=== PATIENT | male | born 1935 | race Caucasian/White ===

== ENCOUNTER 2017-01-05 16:28 | Inpatient (IN) | payer OTHER ==
[~2017-01-05] VITALS: Ht 172.7 cm; Wt 68.0 kg
[2017-01-05 16:30] VITALS: BP 224/110
--- NOTE | 2017-01-05 16:30 | NUR ---
PT BIBA TO BED 2 AT THIS TIME.
--- NOTE | 2017-01-05 16:35 | NUR ---
81M BIB[facility] FROM [facility] C/O GENERALIZED WEAKNESS X 24 HOURS; PT A&OX1 TO SELF, BUT NOT PLACE, TIME, OR SITUATION; HX: CVA, AFIB, LEFT HEMIPARESIS, J-TUBE, DMII, HYPERLIPIDEMIA, BIPOLAR, DEMENTIA; PT DENIES PAIN, N/V/D AT THIS TIME. PT NOTED W/ J-TUBE TO LEFT UPPER QUADRANT FROM RECENT HERNIA REPAIR; NO DRAINAGE NOTED AT THIS TIME TO SITE; PT UNABLE TO AMBULATE AT THIS TIME, W/ SEVERE WEAKNESS TO BL UPPER/LOWER EXTREMITIES; PT ABLE TO FOLLOW COMMANDS; PT PLACED ON MONITOR, RESTING IN BED W/ HOB ELEVATED AND IN LOWEST POSITION; POSITIONED FOR COMFORT; ER MD MADE AWARE OF STATUS. WILL CONTINUE TO MONITOR.
--- NOTE | 2017-01-05 16:38 | NUR ---
XRAY AT BEDSIDE.
[2017-01-05] MEDS ORDERED: COLACE100 M1 PO (16:43)
[2017-01-05] MEDS ORDERED: DIVALPROEX SOD125 M1 PO (16:43)
[2017-01-05] MEDS ORDERED: AMARYL2 MG PO (16:43)
[2017-01-05] MEDS ORDERED: XARELTO15 MG PO (16:43)
[2017-01-05] MEDS ORDERED: DITROPAN5 MG PO (16:43)
[2017-01-05] MEDS ORDERED: NORVASC10 MG PO (16:43)
[2017-01-05] MEDS ORDERED: CALCIUM 500 +1 EAC1 PO (16:43)
[2017-01-05] MEDS ORDERED: LIPITOR10 MG PO (16:43)
[2017-01-05] MEDS ORDERED: CELEXA20 MG PO (16:43)
[2017-01-05] MEDS ORDERED: ALTACE5 MG PO (16:43)
[2017-01-05] MEDS ORDERED: DUTASTERIDE0.5 MG PO (16:43)
[2017-01-05] MEDS ORDERED: GOOD SENSE PAI500 M1 PO (16:43)
--- NOTE | 2017-01-05 17:56 | NUR ---
PT RETURNED FROM CT VIA [facility], ACCOMPANIED BY TELECOM ANALYST.
[2017-01-05] MEDS ORDERED: AZITHROMYCIN 500 MG in DEXTROSE 5% 250 ML IV ONE (18:15)
[2017-01-05] MEDS ORDERED: AZITHROMYCIN 500 MG INJ VIAL IV ONE (18:23)
[2017-01-05] MEDS ORDERED: cefTRIAXone 1,000 MG VIAL ONE (18:23)
--- NOTE | 2017-01-05 18:45 | NUR ---
REPORT GIVEN TO ROYER RN; JM ASKED FOR 15 MINUTES TO PREPARE PT BED; STATED WILL GIVE 15 MINUTES BEFORE TAKING PT TO FLOOR.
[2017-01-05] MEDS ORDERED: NACL 0.9% 1,000 ML IV ONE (18:50)
--- NOTE | 2017-01-05 18:55 | NUR ---
PT BP 95/53; MST NURSE JM NOTIFIED IN REPORT; ER MD DR. CALHOUN NOTIFIED; IV BOLUS STARTED ON PT PER MD DR. CALHOUN ORDERS; WILL CONTINUE TO MONITOR.
--- NOTE | 2017-01-05 19:05 | NUR ---
Patient will be admitted to care of DR. BLANCO. Admited to TELEMETRY. Will go to room 110B. Belongings list completed. Report to ROSIE LINTON. PT TRANSPORTED VIA GURNEY ACCOMPANIED BY ROSIE BASSETT & CARROLL SCHMIDT AT THIS TIME.
--- NOTE | 2017-01-05 19:30 | NUR ---
ADMITTED 81YEAR OLD MALE FROM ER VIA GURNEY ACCOMPANIED BY NURSE, APHASIC, NONVERBAL, SLEEPING, AROUSABLE EASILY. ORIENTED TO ROOM AND UNIT ROUTINES. PLAN OF CARE DISCUSSED WITH PATIENT, VERBALIZED UNDERSTANDING WELL. CALL LIGHT WITHIN REACH.
[2017-01-05] MEDS ORDERED: DEXTROSE 50% 50 ML SYR IVP PRN (21:20)
[2017-01-05] MEDS: DEXT 5% / NACL 0.45% 1,000 ML IV SCH (21:36)
[2017-01-05 22:14] VITALS: BP 143/70
[2017-01-05] MEDS ORDERED: PNEUMOCOCCAL VACCINE 23 MCG/0.5 ML VIAL IMVAC PRN (23:10)
[2017-01-05] MEDS ORDERED: INFLUENZA VIRUS VACCINE QUAD 0.5 ML SYR IMVAC PRN (23:10)
--- NOTE | 2017-01-05 23:26 | NUR ---
EKG DONE ORDERED.
[2017-01-05 23:45] VITALS: BP 105/42
--- NOTE | 2017-01-05 23:47 | NUR ---
REPOSITIONED. NO COMPLAINS. CALL LIGHT WITHIN REACH.
[2017-01-06] VITALS (7 sets, daily range): BP systolic 132–178; BP diastolic 76–95
--- NOTE | 2017-01-06 04:09 | NUR ---
REPOSITIONED. VITAL SIGNS STABLE. NO COMPLAINS. CALL LIGHT WITHIN REACH.
[2017-01-06] MEDS: BLOOD GLUCOSE MONITORING 1 DEV DEV FS SCH ×4 (05:57→20:54)
[2017-01-06] MEDS: INSULIN LISPRO SLIDING SCALE 100 UNITS/ML VIAL SUBQ PRN ×4 (05:58→20:55)
--- NOTE | 2017-01-06 07:30 | NUR ---
RECEIVED ON BED AAOX2, CONFUSED. NO SOB NOTED. NO C/O PAIN AT THIS TIME. IV TO LT AC PATENT AND INTACT. LT SIDED WEAKNESS NOTED. CHEST CLEAR. ABDOMEN SOFT, BOWEL SOUNDS PRESENT. WITH G-TUBE, CLAMPED. SCD'S IN PLACE. WILL REPOSITION PT EVERY 2 HRS. BED ON LOW POSITION. BED ALARM ON. INSTRUCTED PT TO CALL FOR ASSISTANCE, CALL LIGHT WITHIN REACH, PT VERBALIZED PARTIAL UNDERSTANDING.
--- NOTE | 2017-01-06 07:32 | NUR ---
ENDORSED CARE AT BEDSIDE WITH PAULIE RN, PATIENT STABLE CONDITION.
[2017-01-06] MEDS ORDERED: ACETAMINOPHEN EXTRA STRENGTH 500 MG TAB PO PRN (08:05)
--- NOTE | 2017-01-06 08:17 | NUR ---
PATIENT HAS BEEN SCREENED AND CATEGORIZED HIGH NUTRITION RISK. PATIENT WILL BE SEEN WITHIN 1-2 DAYS OF ADMISSION. 01/06/17-01/07/[address] Addendum: 01/06/17 at [address] PATIENT HAS BEEN RESCREENED AND RECATEGORIZED MODERATE NUTRITION RISK. PATIENT WILL BE SEEN WITHIN 3-5 DAYS OF ADMISSION. 01/08/17-01/10/[address]
--- NOTE | 2017-01-06 08:30 | NUR ---
PT SEEN BY DR. Monika BLANCO, NEW ORDERS GIVEN.
[2017-01-06] MEDS ORDERED: RIVAROXABAN 15 MG TAB PO SCH (09:00)
[2017-01-06] MEDS ORDERED: ATORVASTATIN 20 MG TAB PO SCH (09:00)
[2017-01-06] MEDS ORDERED: DUTASTERIDE 0.5 MG PO SCH (09:00)
[2017-01-06] MEDS ORDERED: amLODIPine 5 MG TAB PO SCH (09:00)
[2017-01-06] MEDS: amLODIPine 5 MG TAB JT SCH (10:28)
[2017-01-06] MEDS: RAMIPRIL 5 MG CAP PO SCH (10:29)
[2017-01-06] MEDS: DIVALPROEX SPRINKLES 125 MG CAPDR PO SCH ×3 (10:29→17:00)
[2017-01-06] MEDS: GLIMEPIRIDE 2 MG TAB PO SCH (10:29)
[2017-01-06] MEDS: RIVAROXABAN 15 MG TAB JT SCH (10:40)
[2017-01-06] MEDS: DOCUSATE SODIUM 100 MG GELCAP PO SCH ×2 (10:41→20:53)
[2017-01-06] MEDS: CITALOPRAM 20 MG TAB PO SCH (10:41)
[2017-01-06] MEDS: DEXT 5% / NACL 0.45% 1,000 ML IV SCH ×2 (10:45→22:11)
--- NOTE | 2017-01-06 13:00 | NUR ---
PT ABLE TO SWALLOW ORAL MEDS, CRUSHED WITH APPLE SAUCE, ON ASPIRATION PRECAUTIONS. NURSE HAVE TO TELL PT THAT HE NEEDS TO SWALLOW. PT SEEMS TO NOT HAVE THE INITIATIVE TO SWALLOW THE FOOD IN HIS MOUTH NOT UNTIL TOLD TO DO SO.
--- NOTE | 2017-01-06 15:21 | NUR ---
FNS REFERRAL RECEIVED ON 01/05/17 FOR TUBE FEEDING. RN REPORTS PATIENT ON PUREE DIET, CAN TOLERATE ORAL DIET. PT HAS BEEN RECATEGORIZED MODERATE NUTRITION RISK AND WILL BE SEEN AND ASSESSED WITHIN 3-5 DAYS. SHOULD PT STATUS CHANGE AND PT NEED NUTRITION SUPPORT PLEASE CONSULT ROBERT SLADE THANK YOU CHITRA GE RD Addendum: 01/08/17 at [address] PATIENT HAS BEEN RECATEGORIZED HIGH NUTRITION RISK D/T SWALLOW EVALUATION RECOMMENDING PATIENT BE NPO AND TUBE FEEDINGS HAVE BEEN STARTED. ROBERT WILL ASSESS PATIENT TODAY (01/08/17) CHITRA GE [address]
--- NOTE | 2017-01-06 16:31 | NUR ---
SPOKE WITH DR. BLANCO OVER THE PHONE AND NOTIFIED MD REGARDING PT'S SWALLOWING ISSUE. NEW ORDERS GIVEN.
--- NOTE | 2017-01-06 18:10 | NUR ---
PT ABLE TO CONSUMED 25% OF PUREE DINNER. ON ASPIRATION PRECAUTIONS.
--- NOTE | 2017-01-06 19:00 | NUR ---
PT AWAKE, NO SOB NOTED. NO COMPLAINTS MADE. WILL ENDORSE TO NEXT SHIFT NURSE FOR CONTINUE OF CARE.
--- NOTE | 2017-01-06 19:30 | NUR ---
RECEIVED REPORT FROM ALEX APODACA RN AT BEDSIDE. PT IS ALERT AWAKE ORIENTED X2 WITH PERIOD OF CONFUSION. INITIAL ASSESSMENT DONE. NO S/S OF RESPIRATORY DISTRESS OR SOB NOTED. NO C/O PAIN OR ANY DISCOMFORT AT THIS TIME. PT HAS G-TUBE BUT FEEDING IS ON HOLD BECAUSE PT ABLE TO SWALLOW WITH PUREE DIET. PLACEMENT AND PATENCY ARE CONFIRMED. PLAN OF CARE REVIEWED TO PT AND VERBALIZED UNDERSTANDING AND NEED TO BE REINFORCED. CALL LIGHT WITHIN REACH. WILL CONTINUE TO MONITOR.
[2017-01-06] MEDS: SIMVASTATIN 20 MG TAB PO SCH (20:53)
[2017-01-07] VITALS (7 sets, daily range): BP systolic 95–154; BP diastolic 60–98
--- NOTE | 2017-01-07 00:20 | NUR ---
PT IS SLEEPING RIGHT NOW BUT EASILY AROUSBLE. NO S/S OF ANY DISCOMFORT AT THIS TIME. ALL NEEDS ARE ATTENDED. CALL LIGHT WITHIN REACH. WILL CONTINUE TO MONITOR.
--- NOTE | 2017-01-07 05:15 | NUR ---
AM CARE RENDERED. BED LINEN CHANGED. REPOSITIONED PATIENT. KEPT CLEAN AND DRY. CALL LIGHT WITHIN REACH. WILL CONTINUE TO MONITOR.
[2017-01-07] MEDS: BLOOD GLUCOSE MONITORING 1 DEV DEV FS SCH ×4 (06:31→21:31)
[2017-01-07] MEDS: INSULIN LISPRO SLIDING SCALE 100 UNITS/ML VIAL SUBQ PRN ×3 (06:32→21:33)
--- NOTE | 2017-01-07 07:23 | NUR ---
PT HAS NO S/S OF ANY DISCOMFORT. PLAN OF CARE ENDORSED TO ALEX RN AT BEDSIDE FOR CONTINUITY OF CARE.
--- NOTE | 2017-01-07 07:30 | NUR ---
RECEIVED ON BED ASLEEP, AROUSABLE, ORIENTED X1-2, CONFUSED. NO SOB NOTED. NO C/O PAIN AT THIS TIME. IV TO LT AC PATENT AND INTACT. LT SIDED WEAKNESS NOTED. CHEST CLEAR. ABDOMEN SOFT, BOWEL SOUNDS PRESENT. WITH G-TUBE, CLAMPED. SCD'S IN PLACE. WILL REPOSITION PT EVERY 2 HRS. BED ON LOW POSITION. BED ALARM ON. INSTRUCTED PT TO CALL FOR ASSISTANCE, CALL LIGHT WITHIN REACH, PT VERBALIZED PARTIAL UNDERSTANDING.
[2017-01-07] MEDS: DOCUSATE SODIUM 100 MG GELCAP PO SCH ×2 (09:00→21:31)
[2017-01-07] MEDS: CITALOPRAM 20 MG TAB PO SCH (09:00)
[2017-01-07] MEDS: RAMIPRIL 5 MG CAP PO SCH (09:00)
[2017-01-07] MEDS: amLODIPine 5 MG TAB JT SCH (09:00)
[2017-01-07] MEDS: GLIMEPIRIDE 2 MG TAB PO SCH (09:00)
[2017-01-07] MEDS: DIVALPROEX SPRINKLES 125 MG CAPDR PO SCH ×3 (09:00→18:04)
[2017-01-07] MEDS: ASPIRIN 81 MG TAB.CHEW PO SCH (09:00)
[2017-01-07] MEDS: RIVAROXABAN 15 MG TAB JT SCH (09:00)
--- NOTE | 2017-01-07 09:41 | NUR ---
G-TUBE PATENT AND INTACT, 5 MLS RESIDUAL NOTED. PT REFUSED ALL ORAL MEDS. PT AWAITING FOR SPEECH THERAPIST FOR SWALLOW EVALUATION.
[2017-01-07] MEDS: NITROGLYCERIN 0.2 MG/HR PATCH TD SCH (10:24)
[2017-01-07] MEDS: POTASSIUM CHL 20 MEQ/D5-1/2NS 1,000 ML IV SCH ×2 (10:25→23:11)
[2017-01-07] MEDS: CHLORHEXADINE GLUC 2% CLOTH TP SCH (12:00)
--- NOTE | 2017-01-07 13:09 | NUR ---
RANGE ECOLOGIST note (bedside swallow evaluation completed) [phone]. Bedside swallow evaluation completed, please see report for details. RANGE ECOLOGIST provided pt with education regarding purpose of evaluation; however, pt with ALOC/dementia/bipolar/essentially non-verbal at baseline, so pt unlikely to benefit from education provided at this time. Recommend: 1) STRICT NPO (oral cares only) 2) consider alternative method(s) of nutrition/hydration/medication vs hospice/comfort measures, as appropriate 3) no further RANGE ECOLOGIST intervention indicated at this time. Physician may reorder if pt's status improves significantly/warrants, as appropriate. G-codes: [id number] [id number] [id number] [facility] NOMS level 1. PVE for discussion with RN (Gala) prior to/following evaluation completion.
--- NOTE | 2017-01-07 13:30 | NUR ---
PT NOTES CLEARED BY RN FOR P.T. TX. PATIENT ASLEEP IN BED. PATIENT UNAROUSABLE DESPITE NUMEROUS ATTEMPT AT CALLING PATIENT NAME FOR P.T. TX. PATIENT HEAVILY DROWSY & LETHARGIC. RN STATED THAT PATIENT WAS UNABLE TO SLEEP LAST NIGHT. RN AWARE WILL FOLLOW UP TOMORROW FOR TX. WILL NOTIFY PRIMARY THERAPIST PVE Addendum: 01/08/17 at 1056 by Mariam Dupont PT PHYSICAL THERAPY CO-SIGN The Physical Therapy Progress Notes documented by [employer] have been reviewed. Reviewed/Co-Signed by: Marima Dupont Documentation Done by:DOLORES CORADO PTA
[2017-01-07] MEDS: MUPIROCIN 2% OINT 22 GM TUBE TP SCH (13:45)
--- NOTE | 2017-01-07 17:47 | NUR ---
PT SEEN BY DR. BARKLEY WITH NEW ORDERS.
--- NOTE | 2017-01-07 18:00 | NUR ---
g-tube residual 5 mls noted. g-tube feeding of diabetic source started. will monitor pt for tolerance.
--- NOTE | 2017-01-07 19:20 | NUR ---
PT RESTING, NO SOB NOTED. NO SIGNS OF PAIN. PT TOLERATING G-TUBE FEEDING WELL. WILL ENDORSE TO NEXT SHIFT NURSE FOR CONTINUITY OF CARE.
--- NOTE | 2017-01-07 19:30 | NUR ---
RECEIVED FROM AM RN IN BED SLEEPING. ABLE TO WAKE UP WHEN TOUCHED. ALERT BUT WITH FORGETFULLNESS. HX. LEFT HEMIPARESIS. DX. OF GENERAL WEAKNESS AND INCREASED TROPONIN. CALL LIGHT WITH IN REACH. CARE PLAN FOR THE NIGHT DISCUSSED WITH HIM. NEEDS WILL BE ANTICIPATED RT WITH DEMENTIA.
[2017-01-07] MEDS: SIMVASTATIN 20 MG TAB PO SCH (21:31)
--- NOTE | 2017-01-08 01:29 | NUR ---
FLACC 0-. AFEBRILE.TELEMETRY MONITORING. NEEDS ANTICIPATED. TURNED Q 2H . PILLOW SUPPORT TO PRESSURE AREAS RT WITH GENERALIZED WEAKNESS.SLEEPING AT THIS TIME. NO SOB. CALL LIGHT WITH IN REACH. NO RESTLESSNESS NOTED.
--- NOTE | 2017-01-08 03:00 | NUR ---
PT. SLEEPING. NEEDS ANTICIPATED AND WILL BE MET. TOTAL CARE. TELEMETRY MONITORING. PT. HOB UP 30 DEGREES FOR ASPIRATION PRECAUTIONS. NO N/V. RESIDUAL CHECKED 10 ML. IVF SITE CHECKED WITH GOOD BLOOD RETURN. TURNED TO SIDES Q 2H WITH PILLOW SUPPORT TO PRESSURE AREAS.
[2017-01-08 03:55] VITALS: BP 155/90
--- NOTE | 2017-01-08 05:00 | NUR ---
PT. AWAKE AT THIS TIME. CNAS TURNED PT. Q 2H . PILLOW SUPPORT TO PRESSURE AREAS. TOTAL CARE. NO SOB. ISOLATION PRECAUTION OBSERVED RT WITH MRSA NARES.IVF SITE CHECKED FOR INFILTRATION. GOOD BLOOD RETURN. ABLE TO NOD HEAD FOR YES. AWAKE AND ALERT. CALL LIGHT WITH IN REACH.
[2017-01-08] MEDS: BLOOD GLUCOSE MONITORING 1 DEV DEV FS SCH ×4 (06:38→21:21)
[2017-01-08] MEDS: INSULIN LISPRO SLIDING SCALE 100 UNITS/ML VIAL SUBQ PRN ×4 (06:39→21:24)
--- NOTE | 2017-01-08 07:10 | NUR ---
RECEIVED PATIENT REPORT AT BEDSIDE. PATIENT ASLEEP BUT AROUSABLE. NO S/S OF DISTRESS NOTED. PATIENT ON G-TUBE FEEDING. IV TO THE LEFT AC INTACT WITH IVF INFUSING WELL. SCDS IN PLACE. PATIENT ON TELE MONITORING. BED LOWERED WITH CALL LIGHT WITHIN REACH. WILL CONTINUE TO MONITOR
[2017-01-08 08:00] VITALS: BP 151/99
[2017-01-08] MEDS: DOCUSATE SODIUM 100 MG GELCAP PO SCH ×2 (09:00→21:00)
--- NOTE | 2017-01-08 09:30 | NUR ---
ADMINISTERED DUE MEDS. NO RESIDUALS NOTED. PATIENT TOLERATED WELL
[2017-01-08] MEDS: NITROGLYCERIN 0.2 MG/HR PATCH TD SCH (09:50)
[2017-01-08] MEDS: GLIMEPIRIDE 2 MG TAB PO SCH (09:51)
[2017-01-08] MEDS: DIVALPROEX SPRINKLES 125 MG CAPDR PO SCH ×3 (09:51→17:50)
[2017-01-08] MEDS: amLODIPine 5 MG TAB JT SCH (09:51)
[2017-01-08] MEDS: CITALOPRAM 20 MG TAB PO SCH (09:51)
[2017-01-08] MEDS: ASPIRIN 81 MG TAB.CHEW PO SCH (09:51)
[2017-01-08] MEDS: RAMIPRIL 5 MG CAP PO SCH (09:51)
[2017-01-08] MEDS: RIVAROXABAN 15 MG TAB JT SCH (09:56)
[2017-01-08 12:00] VITALS: BP 140/80
[2017-01-08] MEDS: MUPIROCIN 2% OINT 22 GM TUBE TP SCH (12:25)
[2017-01-08] MEDS: CHLORHEXADINE GLUC 2% CLOTH TP SCH (12:27)
--- NOTE | 2017-01-08 14:00 | NUR ---
PATIENT TURNED AND REPOSITIONED. NO S/S OF DISTRESS NOTED
--- NOTE | 2017-01-08 14:20 | NUR ---
01/08/17 RD INITIAL ASSESSMENT COMPLETED PLEASE REFER TO NUTRITION ASSESSMENT UNDER CARE ACTIVITY FOR ESTIMATED NUTRITIONAL NEEDS. RD RECOMMENDATIONS: 1. CONTINUE NUTRITION SUPPORT DIABETISOURCE AC AT 50 ML/HR WITH 150 ML FREE WATER FLUSH Q12H VIA GTUBE TOLERATED PER MD 2. IF PT CONTINUES TO TOLERATE CURRENT NUTRITION SUPPORT CONSIDER ADVANCE TUBE FEEDING TO 60 ML/HR --WILLPROVIDE 100% OF PT ESTIMATED KCAL AND PROTEIN NEEDS 3. RD WILL F/U 2-3 DAYS; HIGH RISK. AARON ALATORRE RD
[2017-01-08 16:00] VITALS: BP 116/63
--- NOTE | 2017-01-08 17:34 | NUR ---
NEW FEEDING BAG STARTED. FEEDING TUBES REPLACED. PATIENT ASLEEP. NO S/S OF DISTRESS NOTED
[2017-01-08] MEDS: POTASSIUM CHL 20 MEQ/D5-1/2NS 1,000 ML IV SCH (17:50)
--- NOTE | 2017-01-08 19:13 | NUR ---
RECEIVED PT FROM VENTURA Lui RN FOR PT CONTINUITY OF CARE, PT NOTED STABLE. NO ACUTE DISTRESS. WILL CONTINUE TO MONITOR. CALL LIGHT WITHIN REACH.
--- NOTE | 2017-01-08 19:17 | NUR ---
ENDORSED CONTINUITY OF CARE TO THE NIGHT NURSE. PATIENT IN STABLE CONDITION
--- NOTE | 2017-01-08 19:38 | NUR ---
SHIFT ASSESSMENT DONE AT THIS TIME. PT NOTED A/O X1, HAS HX DEMENTIA. IS ABLE TO FOLLOW COMMANDS. NO ACUTE DISTRESS NOTED. VITAL SIGNS ARE STABLE, NOTED ON ROOM AIR WITH OXYGEN SATURATION AT 95%. PT DENIES ANY PAIN AND NO N/V/D. LUNG SOUNDS ARE CLEAR, BOWEL SOUNDS ACTIVE. IV ACCESS TO LEFT AC #20G, PATENT AND INTACT. SKIN INTACT, ONLY BLANCHABLE REDNESS TO SACRAL AREA. SCD'S IN PLACE. G-TUBE IS PATENT AND INTACT, POSITIVE SOUND FOR CORRECT PLACEMENT, NO RESIDUALS NOTED (0ML). PT HAS WEAKNESS TO BOTH UPPER AND LOWER EXTREMITIES. SAFETY PRECAUTIONS IMPLEMENTED, CALL LIGHT WITHIN EASY REACH. BED ALARM ON, PT CLOSE TO NURSE STATION. DISCUSSED PLAN OF CARE. ON CONTACT PRECAUTIONS. WILL CONTINUE TO MONITOR.
[2017-01-08 20:00] VITALS: BP 124/70
[2017-01-08] MEDS: SIMVASTATIN 20 MG TAB PO SCH (21:21)
--- NOTE | 2017-01-08 21:24 | NUR ---
PROVIDED PT WITH INSULIN COVERAGE FOR BLOOD GLUCOSE OF 252. NO DISTRESS NOTED. CALL LIGHT WITHIN REACH.
--- NOTE | 2017-01-08 22:29 | NUR ---
RECEIVED PT FROM VENTURA Lui RN FOR PT CONTINUITY OF CARE, PT NOTED STABLE. NO ACUTE DISTRESS. WILL CONTINUE TO MONITOR. CALL LIGHT WITHIN REACH. Addendum: 01/08/17 at 2230 by Irma Turpin RN WRONG TIME.
--- NOTE | 2017-01-08 23:36 | NUR ---
PT VITAL SIGNS REMAIN STABLE, NO S/S OF ACUTE DISTRESS NOTED. PROVIDED VIDA CARE AND TURNING. CALL LIGHT WITHIN REACH.
[2017-01-09] VITALS: BP 144/80
--- NOTE | 2017-01-09 02:01 | NUR ---
PT NOTED STABLE, PROVIDED TURNING AT THIS TIME. NO S/S OF DISTRESS. WILL CONTINUE TO MONITOR.
[2017-01-09] MEDS: POTASSIUM CHL 20 MEQ/D5-1/2NS 1,000 ML IV SCH ×2 (03:39→08:53)
--- NOTE | 2017-01-09 03:57 | NUR ---
PT VITALS SIGNS REMAIN STABLE, NO S/S OF DISTRESS. PROVIDED TURNING. NO RESIDUALS NOTED.
[2017-01-09 04:00] VITALS: BP 114/72
[2017-01-09] MEDS: BLOOD GLUCOSE MONITORING 1 DEV DEV FS SCH ×2 (06:12→12:25)
[2017-01-09] MEDS: INSULIN LISPRO SLIDING SCALE 100 UNITS/ML VIAL SUBQ PRN (06:16)
--- NOTE | 2017-01-09 06:59 | NUR ---
RECEIVED CRITICAL LAB FOR PT TROPONIN OF 0.083H, TRENDING DOWN FROM LAST RESULT. ALREADY AWARE.
--- NOTE | 2017-01-09 07:08 | NUR ---
RECEIVED PATIENT REPORT AT BEDSIDE. PATIENT ASLEEP. NO S/S OF DISTRESS NOTED. PATIENT ON ROOM AIR. IV TO THE LEFT FA INTACT WITH IVF INFUSING WELL. G-TUBE IN PLACE WITH FEEDING RUNNING WELL. PATIENT ON TELE MONITORING. BED LOWERED WITH CALL WITHIN REACH. WILL CONTINUE TO MONITOR
--- NOTE | 2017-01-09 07:08 | NUR ---
ENDORSED PT TO VENTURA Lui RN AT BEDSIDE FOR PT CONTINUITY OF CARE. PT NOTED STABLE.
[2017-01-09 08:00] VITALS: BP 108/83
[2017-01-09] MEDS: RIVAROXABAN 15 MG TAB JT SCH (08:49)
[2017-01-09] MEDS: DIVALPROEX SPRINKLES 125 MG CAPDR PO SCH ×2 (08:50→12:26)
[2017-01-09] MEDS: amLODIPine 5 MG TAB JT SCH (08:50)
[2017-01-09] MEDS: GLIMEPIRIDE 2 MG TAB PO SCH (08:50)
[2017-01-09] MEDS: RAMIPRIL 5 MG CAP PO SCH (08:50)
[2017-01-09] MEDS: CITALOPRAM 20 MG TAB PO SCH (08:50)
[2017-01-09] MEDS: ASPIRIN 81 MG TAB.CHEW PO SCH (08:50)
[2017-01-09] MEDS: NITROGLYCERIN 0.2 MG/HR PATCH TD SCH (08:51)
[2017-01-09] MEDS: DOCUSATE SODIUM 100 MG GELCAP PO SCH (08:51)
[2017-01-09] MEDS ORDERED: DOCUSATE 100 MG/10 ML UDC GT SCH (09:00)
--- NOTE | 2017-01-09 09:30 | NUR ---
ADMINISTERED DUE MEDS VIA G-TUBE. NO RESIDUALS NOTED. PT TOLERATED WELL
[2017-01-09] MEDS ORDERED: HYDROmorphone PFS 2 MG/ML SYR ONE (10:38)
--- NOTE | 2017-01-09 10:45 | NUR ---
PATIENT SEEN BY PHYSICAL THERAPIST. PATIENT LETHARGIC BUT WAS ABLE TO SIT AT THE SIDE OF THE BED
--- NOTE | 2017-01-09 11:00 | NUR ---
MADE DR BLANCO AWARE OF PATIENT BEING MORE LETHARGIC COMPARED TO YESTERDAY
--- NOTE | 2017-01-09 11:58 | NUR ---
SS NOTE: I SPOKE WITH PT'S DTR-IN-LAW, MARIAH REGARDING PAYMENT FOR [facility]. SHE STATED THAT SHE HAS DEALT WITH [facility] IN THE PAST AND THEY CAN CALL HER TO MAKE PAYMENT ARRANGEMENTS. CLIFF MCDONOUGH.
[2017-01-09 12:00] VITALS: BP 94/50
--- NOTE | 2017-01-09 12:11 | NUR ---
SS NOTE: PER LAMONT FROM [facility] ([phone]), THEY WILL SEND A NURSE TO SEE PT TODAY WHEN HE ARRIVES BACK TO HIS [facility].
--- NOTE | 2017-01-09 12:21 | NUR ---
CALLED MARIAH, PATIENT'S CUSTOMER CARE SPECIALIST, AND MADE HER AWARE THAT PATIENT WILL BE DISCHARGED BACK TO [facility] TODAY
[2017-01-09] MEDS: MUPIROCIN 2% OINT 22 GM TUBE TP SCH (12:26)
[2017-01-09] MEDS: CHLORHEXADINE GLUC 2% CLOTH TP SCH (12:26)
--- NOTE | 2017-01-09 12:32 | NUR ---
CALLED [facility] AND SET UP GURNEY TRANSPORT FOR 2:20P.M. MARIAH, DAUGHTER IN LAW TO PAY FOR TRANSPORT, [facility] AWARE. LISA VELEZ AWARE OF TIME OF TRANSPORT.
--- NOTE | 2017-01-09 13:38 | NUR ---
GAVE PT REPORT TO [facility] AND [facility]. PATIENT EXPECTED TO BE TRANSPORTED AT 1430
--- NOTE | 2017-01-09 15:20 | NUR ---
PATIENT PICKED UP BY [facility]. IV LINE DISCONTINUED. TELE LEADS TAKEN OFF. PATIENT LEFT WITH ALL HIS BELONGINGS AND DISCHARGE PAPERS. PATIENT LEFT IN STABLE CONDITION
== END 2017-01-09 15:20 | DRG 871 ==
LOC: MED 16:28 → MTU 18:25
PROVIDERS: ADMIT Family Medicine; ATTEND Family Medicine
DX: A41.9 Sepsis, unspecified organism (principal); I21.4 Non-ST elevation (NSTEMI) myocardial infarction; I16.1 Hypertensive emergency; I69.354 Hemiplegia and hemiparesis following cerebral infarction affecting left non-dominant side; N17.9 Acute kidney failure, unspecified; N18.3 Chronic kidney disease, stage 3 (moderate); E11.65 Type 2 diabetes mellitus with hyperglycemia; F01.50 Vascular dementia, unspecified severity, without behavioral disturbance, psychotic disturbance, mood disturbance, and anxiety; N40.0 Benign prostatic hyperplasia without lower urinary tract symptoms; F17.219 Nicotine dependence, cigarettes, with unspecified nicotine-induced disorders; I48.91 Unspecified atrial fibrillation; F31.9 Bipolar disorder, unspecified; I12.9 Hypertensive chronic kidney disease with stage 1 through stage 4 chronic kidney disease, or unspecified chronic kidney disease; Z79.01 Long term (current) use of anticoagulants; E11.22 Type 2 diabetes mellitus with diabetic chronic kidney disease; Z79.899 Other long term (current) drug therapy; E78.5 Hyperlipidemia, unspecified

== ENCOUNTER 2017-01-12 11:33 | Observation (INO) | payer OTHER ==
[~2017-01-12] VITALS: Ht 170.2 cm; Wt 74.8 kg
[~2017-01-12 11:33] MED LIST: ALTACE5 MG PO; AMARYL2 MG PO; CALCIUM 500 +1 EAC1 PO; CELEXA20 MG PO; COLACE100 M1 PO; DITROPAN5 MG PO; DIVALPROEX SOD125 M1 PO; DUTASTERIDE0.5 MG PO; GOOD SENSE PAI500 M1 PO; LIPITOR10 MG PO; NORVASC10 MG PO; XARELTO15 MG PO
--- NOTE | 2017-01-12 11:33 | NUR ---
Patient was BIBA and taken to bed 06 via gurney per EMS.
[2017-01-12 11:41] VITALS: BP 113/52
--- NOTE | 2017-01-12 11:48 | NUR ---
BIBA IN FAIR CONDITION DUE TO DISLODGED G-TUBE THIS MORNING FROM [facility]ARD AND CARE, PT AA BUT WITH FORGETFULNESS, SKIN WARM TO TOUCH,PT PALE, DRESSING NOTED ON ABDOMEN,REMOVED DRESSING AND NOTED NO GT IN PLACE, NOTED GT SITE CLOSED, ABDOMEN SOFT NON DISTENDED.
--- NOTE | 2017-01-12 11:51 | NUR ---
Dr. Zaman evaluating patient at bedside.
--- NOTE | 2017-01-12 11:53 | NUR ---
DR. JACKSON AT BEDSIDE TRY TO PUT GT BUT UNABLE.
[2017-01-12] MEDS ORDERED: NACL 0.9% 1,000 ML IV ONE (11:55)
--- NOTE | 2017-01-12 12:02 | NUR ---
LAB AT BEDSIDE
--- NOTE | 2017-01-12 12:02 | NUR ---
TRY TO PUT URINAL FOR URINE PT BECOME AGITATED, WILL COLLECT LATER
--- NOTE | 2017-01-12 12:26 | NUR ---
REPORT GIVEN TO MATT
--- NOTE | 2017-01-12 12:30 | NUR ---
TALKED TO DR. JACKSON ABOUT URINE COLLECTION UNABLE TO COLLECT AT THIS TIME PER DR. JACKSON MAY DO IN AND OUT FOR URINE COLLECTION
--- NOTE | 2017-01-12 12:33 | NUR ---
IN AND OUT CATH DONE NO BLEEDING NOTED, ASSISTED BY EMT KIMBERLY
--- NOTE | 2017-01-12 12:38 | NUR ---
TRANSFER TO TELE, VIA MG, PT AA BUT WITH CONFUSION, SKIN WARM TO TOUCH RESP. EVEN AND UNLABORED, NO DISTRESS NOTED, NO SOB NOTED.
[2017-01-12 12:45] VITALS: BP 147/67
--- NOTE | 2017-01-12 12:45 | NUR ---
RECEIVED REPORT FROM ER NURSE. PT IS AAOX1, DENIES PAIN/DISCOMFORT AT THIS TIME. SKIN IS DRY AND INTACT. IV IS PATENT AND INTACT. PT IS ON ROOM AIR, VITALS STABLE. CALL LIGHT WITHIN REACH. WILL CONTINUE TO MONITOR.
[2017-01-12] MEDS ORDERED: INSULIN LISPRO SLIDING SCALE 100 UNITS/ML VIAL SUBQ PRN (13:30)
[2017-01-12] MEDS ORDERED: POTASSIUM CHL 20 MEQ/ 1/2 NS 1,000 ML IV SCH (13:30)
[2017-01-12] MEDS ORDERED: DEXTROSE 50% 50 ML SYR IVP PRN (13:30)
--- NOTE | 2017-01-12 14:41 | NUR ---
CUSTOMER QUALITY ENGINEER note (bedside swallow evaluation completed) [id number]. Bedside swallow evaluation completed, please see report for details. CUSTOMER QUALITY ENGINEER provided pt with education; however, pt unable to benefit at this time. Due to pt's fluctuating ability to swallow following multiple cues and pt's appearance of forgetting to swallow and forgetting bolus is still in his mouth, recommend: 1) NPO (oral cares only) 2) consider alternative method(s) of nutrition/hydration/medication to assist pt with meeting his nutrition/hydration/medication needs safely vs comfort measures/hospice, as appropriate 3) if pt's family/power of ip attorney/conservator insists on pt taking PO, pt MAY be able to tolerate a VERY small amount of pureed textures and nectar-thick liquids with 100% assistance by a staff member who will cue pt enough to ensure swallow has occurred before presenting any further PO or allowing pt to return to sleeping/other activities. But CUSTOMER QUALITY ENGINEER concerned that with this level of assistance required and the time pt takes to swallow each bolus following multiple cues required, that pt is highly unlikely to be able to meet his needs safely via PO only. 4) no further CUSTOMER QUALITY ENGINEER intervention indicated at this time. Physician may reorder if further concerns arise, as appropriate. G-codes: [id number] [id number] [facility] NOMS level 2. PVE for discussion with RN (Crissy), charge account clerk (Gala), and Dr. Lilly (via phone).
--- NOTE | 2017-01-12 15:14 | NUR ---
SPOKE WITH AL FROM [facility]. PT IS GOING BACK TO [facility] CARE, ETA 1830 HRS [facility]. PER CHARLENE- DIRECTOR OF CASE MANAGEMENT, IT WILL BE BILLED TO [facility]. LAMONT-ROSIE, MADE AWARE OF ETA.
--- NOTE | 2017-01-12 15:27 | NUR ---
WOUND CARE NOTES: SEEN PATIENT RE: HUDSON 14. SKIN INTACT. URINE AND BOWEL INCONTINENT. NO REDNESS NOTED ON THE PERIAREA. PATIENT NEEDS ASSISTANCE IN TURNING. SCARRING ON THE ABDOMEN NOTED, OLD G TUBE SITE. NO FOLLOW UP NEEDED AT THIS TIME. INITIAL PLAN OF CARE AND PRESSURE PREVENTIVE MEASURES DISCUSSED, ABLE TO VERBALIZE UNDERSTANDING.
[2017-01-12 16:00] VITALS: BP 132/51
--- NOTE | 2017-01-12 16:01 | NUR ---
VITALS REMAIN STABLE. WILL CONTINUE TO MONITOR.
--- NOTE | 2017-01-12 16:11 | NUR ---
REPORT GIVEN TO JOIE CURRY OF [facility] BOARD AND [facility].
[2017-01-12] MEDS ORDERED: BLOOD GLUCOSE MONITORING 1 DEV DEV FS SCH (16:30)
--- NOTE | 2017-01-12 16:41 | NUR ---
BLOOD SUGAR 58, D50 ADMINISTERED PRESCRIBED.
--- NOTE | 2017-01-12 16:50 | NUR ---
AFTER D50 ADMINISTRATION, PT'S BS 179.
[2017-01-12] MEDS: DIVALPROEX SPRINKLES 125 MG CAPDR PO SCH ×2 (17:00→17:02)
--- NOTE | 2017-01-12 17:08 | NUR ---
PT REFUSED MEDICATION. WILL CONTINUE TO MONITOR.
--- NOTE | 2017-01-12 17:45 | NUR ---
INFORMED DR OF PT'S LOW BS, PER DR. FRANCIS SCHAEFFER TO D/C. WILL CONTINUE TO MONITOR.
--- NOTE | 2017-01-12 18:34 | NUR ---
INFORMED DR. BLANCO OF IV INFILTRATION TO LEFT ARM. INFORMED JOIE FROM BOARD AND CARE. PT UNABLE TO SIGN D/C PAPERWORK. D/C INSTRUCTIONS WITH PT. IV REMOVED WITH CANNULA INTACT. WRISTBANDS REMOVED. PT WAS PICKED UP BY [facility]IA [facility]. IN STABLE CONDITION.
--- NOTE | 2017-01-12 18:50 | NUR ---
PT REFUSED PHOTO TO LEFT HAND TO LEFT HAND OF IV INFILTRATION. BOARD AND CARE AWARE.
[2017-01-12] MEDS ORDERED: DOCUSATE SODIUM 100 MG GELCAP PO SCH (21:00)
[2017-01-13] MEDS ORDERED: amLODIPine 5 MG TAB PO SCH (09:00)
[2017-01-13] MEDS ORDERED: CITALOPRAM 20 MG TAB PO SCH (09:00)
[2017-01-13] MEDS ORDERED: DUTASTERIDE 0.5 MG PO SCH (09:00)
[2017-01-13] MEDS ORDERED: RIVAROXABAN 15 MG TAB PO SCH (09:00)
[2017-01-13] MEDS ORDERED: RAMIPRIL 5 MG CAP PO SCH (09:00)
== END 2017-01-12 18:30 ==
LOC: MED 11:33 → INTOOBSV 12:15 → MTU 12:15
PROVIDERS: ADMIT Family Medicine; ATTEND Family Medicine
DX: K94.23 Gastrostomy malfunction (principal); E11.22 Type 2 diabetes mellitus with diabetic chronic kidney disease; E44.0 Moderate protein-calorie malnutrition; F03.90 Unspecified dementia, unspecified severity, without behavioral disturbance, psychotic disturbance, mood disturbance, and anxiety; I12.9 Hypertensive chronic kidney disease with stage 1 through stage 4 chronic kidney disease, or unspecified chronic kidney disease; N18.3 Chronic kidney disease, stage 3 (moderate); N40.0 Benign prostatic hyperplasia without lower urinary tract symptoms; Z86.73 Personal history of transient ischemic attack (TIA), and cerebral infarction without residual deficits; Z95.1 Presence of aortocoronary bypass graft
CPT/HCPCS: 36415; 80053; 81001; 82948; 85025; 85610; 85730; 87081; 92610; 96361; 96372; 96374; 97799; 99285; C1758; G0378; J1815; J3480; J7030